=== PATIENT | female | born 1985 | race Two or more races ===

== ENCOUNTER 2017-02-05 19:05 | Emergency (ER) | payer OTHER ==
[2017-02-05 19:28] VITALS: BP 121/58
[2017-02-05 20:10] LABS: BILIRUBIN,URINE SMALL (NEG); GLUCOSE,URINE NEGATIVE (NEG); NITRITE,URINE NEGATIVE (NEG); PH,URINE 5.5; PROTEIN,URINE 100 mg/dL (NEG-TRACE); UROBILINOGEN,URINE 0.2 mg/dL (0.2 mg/dL)
[2017-02-05 20:20] LABS: BACTERIA,URINE FEW /HPF (0-FEW); RBC,URINE TNTC /HPF (0-2); SQUAMOUS EPITHELIAL CELL,UR FEW /LPF
--- NOTE | 2017-02-05 20:28 | PHYS DOC ---
Past Medical History Past Medical History: Anxiety, Depression Past Surgical History: Appendectomy, Cholecystectomy Alcohol Use: Rarely Drug Use: None Adult General Chief Complaint Chief Complaint: VAGINAL PROBLEM HPI HPI Patient is a 31 year old female presents to emergency department stating that she has having pelvic discomfort. She states that she is on her menstrual cycle and believes that she removed her tampon today but is not sure. She does state that she feels a stray in the vaginal area although cannot get a hold of it to pull the string out. She states that when she tries to sit she has increased pain and discomfort. She states she also has the pain and discomfort when she is standing. Patient denies possibility of being as she has an IUD in place. Patient denies any fever, chills or any nausea or vomiting. Patient does state in the past she has had a displaced IUD which had perforated the uterus. Review of Systems Review of Systems Constitutional: Denies fever or chills [] Eyes: Denies change in visual acuity, redness, or eye pain [] HENT: Denies nasal congestion or sore throat [] Respiratory: Denies cough or shortness of breath [] Cardiovascular: No additional information not addressed in HPI [] GI: Denies abdominal pain, nausea, vomiting, bloody stools or diarrhea [] : Denies dysuria or hematuria. Complaint of pelvic pain and discomfort. Musculoskeletal: Denies back pain or joint pain [] Integument: Denies rash or skin lesions [] Neurologic: Denies headache, focal weakness or sensory changes [] Endocrine: Denies polyuria or polydipsia [] Current Medications Current Medications Current Medications Medications (Trade) Dose Ordered Sig/Jerry Start Time Stop Time Status Last Admin Dose Admin Acetaminophen/ Hydrocodone Bitart (Lortab 5/325) 1 tab 1X ONCE 02/05/17 21:30 02/05/17 21:35 DC Fentanyl Citrate (Fentanyl 2ml Vial) 50 mcg 1X ONCE 02/05/17 21:45 02/05/17 21:46 DC 02/05/17 21:49 50 MCG Allergies Allergies Allergies Coded Allergies Type Severity Reaction Last Updated Verified acetaminophen Allergy Severe STOP BREATHING 02/05/17 Yes morphine Allergy Severe STOP BREATHING 02/05/17 Yes oxycodone Allergy Severe STOP BREATHING 02/05/17 Yes Physical Exam Physical Exam Constitutional: Well developed, well nourished, no acute distress, non-toxic appearance. [] HENT: Normocephalic, atraumatic, bilateral external ears normal, oropharynx moist, no oral exudates, nose normal. [] Eyes: PERRLA, EOMI, conjunctiva normal, no discharge. [] Neck: Normal range of motion, no tenderness, supple, no stridor. [] Cardiovascular:Heart rate regular rhythm, no murmur [] Lungs & Thorax: Bilateral breath sounds clear to auscultation [] Skin: Warm, dry, no erythema, no rash. [] Back: No tenderness Extremities: No tenderness, no cyanosis, no clubbing, ROM intact, no edema. [] Neurologic: Alert and oriented X 3, normal motor function, normal sensory function, no focal deficits noted. [] Psychologic: Affect normal, judgement normal, mood normal. [] Pelvic exam: Speculum exam with no retained tampon noted. Patient does have an IUD that's in place that appears to be slightly out of the cervix. Patient was noted to have blood in the vaginal vault. Manual exam no adnexal tenderness noted no CMT noted Current Patient Data Vital Signs Vital Signs Date Time Temp Pulse Resp B/P (MAP) Pulse Ox O2 Delivery O2 Flow Rate FiO2 02/05/17 19:28 98.2 101 18 97 Room Air 98.2 Lab Values Laboratory Tests Test 02/05/17 19:06 02/05/17 19:50 POC Urine HCG, Qualitative Hcg negative (Negative) Urine Collection Type Void Urine Color Red Urine Clarity Cloudy Urine pH 5.5 Urine Specific [place] >=1.030 Urine Protein 100 mg/dL (NEG-TRACE) Urine Glucose (UA) Negative mg/dL (NEG) Urine Ketones (Stick) Trace mg/dL (NEG) Urine Blood Large (NEG) Urine Nitrite Negative (NEG) Urine Bilirubin Small (NEG) Urine Urobilinogen Dipstick 0.2 mg/dL (0.2 mg/dL) Urine Leukocyte Esterase Small (NEG) Urine RBC Tntc /HPF (0-2) Urine WBC 11-20 /HPF (0-4) Urine Squamous Epithelial Cells Few /LPF Urine Bacteria Few /HPF (0-FEW) Urine Mucus Slight /LPF EKG EKG [] Radiology/Procedures Radiology/Procedures [] Course & Med Decision Making Course & Med Decision Making Pertinent Labs and Imaging studies reviewed. (See chart for details) Spoke with Dr. Fernandez CAT OPERATOR in regards to displaced uterine device. Recommendations was to have the patient follow-up Thursday in the office or to have patient removed the IUD herself. She also mentioned that the emergency department also removed IUD as well. Spoke with patient in regards to removing the IUD here in the emergency department. Pelvic exam was completed again with IUD removed with ring forceps with no difficulty. IUD appears to be intact. Patient had been provided with fentanyl prior to removal of the IUD. Patient tolerated the procedure well. Also spoke with patient regards to placing her on doxycycline for a pelvic inflammatory infection. Patient will be discharged home on doxycycline. Patient was also encouraged to refrain from sexual intercourse for 2 weeks. Patient was instructed to follow-up with her CAT OPERATOR next week. Patient will continue to take Tylenol or ibuprofen for pain and discomfort. She will be discharged home in stable condition. Patient was provided with signs and symptoms to return back to the emergency department. Dragon Disclaimer Dragon Disclaimer This electronic medical record was generated, in whole or in part, using a voice recognition dictation system. Departure Departure Impression: Primary Impression: IUD complication Additional Impression: Remove/insert IUD Disposition: HOME, SELF-CARE Condition: STABLE Referrals: CAYLA MALDONADO BOTTLED BEVERAGE INSPECTOR (PCP) Additional Instructions: Activity as tolerated. Medications as prescribed. Tylenol or ibuprofen for pain and discomfort. Follow-up with your CAT OPERATOR next week. Return back to emergency department for any signs and symptoms that become worse. Scripts Doxycycline Hyclate (DOXYCYCLINE HYCLATE) 100 Mg Capsule 1 CAP PO BID, #28 CAP Prov: EFRAIN YU APRN 02/05/17 Problem Qualifiers EFRAIN YU APRN Feb 05, 2017 20:28
--- NOTE | 2017-02-05 21:14 | RAD ---
Pelvic ultrasound dated 02/05/2017. No comparison available. Clinical indication: Possible misplaced IUD. Pain for 6 months. FINDINGS: Transabdominal and transvaginal imaging performed. The uterus is retroverted and measures 8.1 x 5.3 x 4.6 cm. No focal uterine mass. Endometrium is normal in thickness measuring about 5 mm. Intrauterine contraceptive device is identified which extends to the lower uterine segment and cervix. Right ovary measures 2.9 x 2.8 x 2.0 cm. Left ovary measures 2.9 x 1.6 x 1.6 cm. Normal color Doppler flow to both ovaries. No adnexal mass or free fluid. IMPRESSION: 1. Intrauterine contraceptive device is abnormal position and appears to extend into the lower uterine segment/cervix.. 2. Normal sonographic appearance of the ovaries. No free fluid. Electronically signed by: Melvin Anguiano MD (02/05/2017 9:11 PM)
[2017-02-05] MEDS ORDERED: HYDROcodone/APAP 5/325MG 1 TAB TABLET PO ONE (21:30)
[2017-02-05] MEDS ORDERED: fentaNYL PF VIAL 100 MCG/2 ML VIAL IM ONE (21:45)
[2017-02-05] MEDS ORDERED: DOXY100C2 PO (22:39)
== END 2017-02-05 22:46 | disposition home or self-care (01) ==
LOC: ER 19:05
DX: T83.84XA Pain due to genitourinary prosthetic devices, implants and grafts, initial encounter (principal); F41.9 Anxiety disorder, unspecified; F32.9 Major depressive disorder, single episode, unspecified; Z88.6 Allergy status to analgesic agent; Z88.5 Allergy status to narcotic agent; Z90.49 Acquired absence of other specified parts of digestive tract; Z46.89 Encounter for fitting and adjustment of other specified devices; Y83.8 Other surgical procedures as the cause of abnormal reaction of the patient, or of later complication, without mention of misadventure at the time of the procedure; Y76.8 Miscellaneous obstetric and gynecological devices associated with adverse incidents, not elsewhere classified; Y92.89 Other specified places as the place of occurrence of the external cause
CPT/HCPCS: 76830; 76856; 81001; 81025; 87086; 96372; 99285; J3010

== ENCOUNTER 2017-11-10 14:16 | Emergency (ER) | payer OTHER ==
[2017-11-10] MEDS ORDERED: 0.9 % SODIUM CHLORIDE 10 ML DISP.SYRIN. IV (15:00)
[2017-11-10] MEDS: ACETAMINOPHEN 500 MG TABLET PO (15:00)
[2017-11-10] MEDS: IV NORMAL SALINE 1000ML BAG 1,000 ML IV (15:17)
[2017-11-10 15:24] LABS: ADD MAN DIFF? NO
[2017-11-10 15:28] LABS: BASO % 0 % (0-3); EOS % 1 % (0-3); HEMATOCRIT 30.9 % (36.0-47.0); HEMOGLOBIN 10.5 g/dL (12.0-15.5); LYMPH # 1.7 x10^3/uL (1.0-4.8); LYMPH % 26 % (24-48); MEAN CORPUSCULAR HEMOGLOBIN 30 pg (25-35); MEAN CORPUSCULAR HGB CONC 34 g/dL (31-37); MEAN CORPUSCULAR VOLUME 88 fL (79-100); MONO # 0.4 x10^3/uL (0.0-1.1); MONO % 6 % (0-9); NEUT # 4.3 x10^3uL (1.8-7.7); NEUT % 67 % (31-73); PLATELET COUNT 202 x10^3/uL (140-400); RED BLOOD COUNT 3.51 x10^6/uL (3.50-5.40); RED CELL DISTRIBUTION WIDTH 13.1 % (11.5-14.5); WHITE BLOOD COUNT 6.5 x10^3/uL (4.0-11.0)
[2017-11-10 15:29] LABS: BILIRUBIN,URINE NEGATIVE (NEG); CLARITY,URINE CLEAR; COLOR,URINE YELLOW; GLUCOSE,URINE NEGATIVE (NEG); NITRITE,URINE NEGATIVE (NEG); PROTEIN,URINE NEGATIVE (NEG-TRACE); UROBILINOGEN,URINE 0.2 mg/dL (0.2 mg/dL)
[2017-11-10 15:36] LABS: ANION GAP 9 (6-14); BLOOD UREA NITROGEN 9 mg/dL (7-20); CALCIUM 10.3 mg/dL (8.5-10.1); CARBON DIOXIDE 26 mmol/L (21-32); CHLORIDE 104 mmol/L (98-107); CREATININE 0.5 mg/dL (0.6-1.0); GFR 143.9; GLUCOSE 90 mg/dL (70-99); MAGNESIUM 1.8 mg/dL (1.8-2.4); POTASSIUM 3.8 mmol/L (3.5-5.1); SODIUM 139 mmol/L (136-145)
[2017-11-10 15:37] LABS: BACTERIA,URINE 0 /HPF (0-FEW); RBC,URINE 0 /HPF (0-2); SQUAMOUS EPITHELIAL CELL,UR FEW /LPF; WBC,URINE 0 /HPF (0-4)
== END 2017-11-10 16:27 | disposition home or self-care (01) ==
LOC: ER 14:16
DX: O20.0 Threatened abortion (principal); Z90.49 Acquired absence of other specified parts of digestive tract; Z88.5 Allergy status to narcotic agent; Z88.6 Allergy status to analgesic agent
CPT/HCPCS: 36415; 76805; 80048; 81001; 83735; 85025; 96360; 99285-25; J7030